=== PATIENT | female | born 1965 | race Caucasian/White ===

== ENCOUNTER → 2023-04-22 | Outpatient (CLI) | payer BC, SELFPAY ==
--- NOTE | 2023-04-22 08:30 | PET_ITS ---
EXAMINATION: FDG PET-CT- Head to Toe INDICATIONS: A 57-year-old female with history of primary breast carcinoma presenting for restaging examination. COMPARISON EXAMINATION: None available INDEX LESION SIZE SUV INTERPRETATION Left form drafter space 24.5-mm 7.3 Fulfills quantitative criteria for viable neoplasm, histopathologic analysis recommended TECHNIQUE: Following the intravenous administration of 13.88 mCi of F-18 deoxyglucose via the left antecubital fossa, multiplanar image acquisitions of the head, neck, chest, abdomen and pelvis, lower extremities to the level of the bilateral feet, obtained at one hour post radiopharmaceutical administration contemporaneously interpreted with the current CT of the head, neck, chest, abdomen and pelvis, lower extremities to the level of the bilateral feet, dated 04/22/23 via coregistration reveals: BLOOD GLUCOSE LEVEL:?? 146 mg/dl?HEIGHT:?66 inches?WEIGHT: 176 lbs. FINDINGS: Head/Neck: Asymmetric increased radiopharmaceutical concentration is defined in the left form drafter space with a calculated maximal standard uptake value of 7.3. The maximal axial diameter of the metabolic, morphologic abnormality is 24.5-mm (transverse). Symmetric glucose metabolism is evident in the occipital, frontal, parietal and temporal lobes of the cerebral cortex, as well as normal visualization of the basal ganglia and cerebellar hemispheres. CHEST: There is no quantitative scintigraphic evidence of abnormal increased glucose metabolism within the context of the bilateral hemithorax pulmonary parenchyma, right and left hemithorax pleural interface, mediastinal structures and right-left thoracic perihilum. Prominent radiopharmaceutical concentration is identified in the left ventricular myocardium commensurate with the [place]. Pertinent chest CT findings are as follows. A right breast prosthesis is defined. Surgical clips are noted in the right axilla. Right and left axillary soft tissue densities reveal no evidence of quantitatively significant increased FDG uptake. Non-calcified density defined in the right mid posterolateral lung zone, right lower lobe is non-glucose avid. Abdomen/Pelvis: Normal physiologic distribution of the radiopharmaceutical is apparent in the hepatic (3.4) and splenic parenchyma, both renal units, bladder and visualized intestinal tract. Diffuse radiopharmaceutical concentration is noted in all four quadrants of the abdomen and pelvis. Pertinent abdomen and pelvis CT findings are as follows. Multiple calcifications are noted in the lower pelvis associated with the uterus without evidence of increased radiopharmaceutical concentration. Right and left inguinal soft tissue densities are ametabolic. There is atherosclerotic calcification defined in the abdominal aorta without evidence of dilatation-aneurysm formation. Skeletal: Degenerative changes are noted in the cervical, thoracic and lumbar spine without evidence of increased radiopharmaceutical concentration. PET/PET/CT Tumor WB Subs IMPRESSION: 1. Increased radiopharmaceutical concentration defined in the left form drafter space warrants histopathologic investigation secondary to the quantitative degree of uptake. 2. No other quantitatively significant hypermetabolic abnormalities are noted. Electronic Signature David Pardo D.O. Accurate Quantification of SUVs for this report are calculated using the exclusive [employer]. ([place] Patent No. [id number] [id number] [phone] [place] patent [phone]). Standardization and correction of the FDG SUV metric via [employer] technology allow for vendor non-specific objective quantitative examination comparison and optimization of the sensitivity and specificity of the FDG PET-CT examination. Electronically Signed: David Pardo, at 14:47 EDT ,
== END | disposition home or self-care (01) ==
LOC: ONC 08:07
PROVIDERS: PCP Internal Medicine; Referring Provider Internal Medicine Hematology & Oncology; Visit Provider Internal Medicine Hematology & Oncology
DX: C50.411 Malignant neoplasm of upper-outer quadrant of right female breast (principal); Z17.0 Estrogen receptor positive status [ER+]; E83.52 Hypercalcemia
CPT/HCPCS: 78816; A9552